=== PATIENT | male | born 1945 | race Caucasian/White ===

== ENCOUNTER 2021-10-19 14:01 | Emergency (ER) | payer MEDICARE ==
[2021-10-19] MEDS ORDERED: LORazepam 2 MG/ML SDV IVPUSH ONE (14:49)
[2021-10-19] MEDS ORDERED: Metoclopramide 10 MG/2 ML SDV IVPUSH ONE (14:49)
[2021-10-19] MEDS ORDERED: Sodium Chloride 0.9% 1,000 ML IV SCH (15:00)
[2021-10-19 16:12] LABS: HEMOGLOBIN A1C 6.2 %
[2021-10-19 16:20] LABS: ESTIMATED GFR 79 mL/min (>60)
[2021-10-19] MEDS ORDERED: Levothyroxine 75 MCG Tab PO ONE (17:54)
== END 2021-10-19 18:25 | disposition home or self-care (01) ==
LOC: JD.ED 14:01
DX: H81.10 Benign paroxysmal vertigo, unspecified ear (principal); E03.9 Hypothyroidism, unspecified; E11.9 Type 2 diabetes mellitus without complications; E78.00 Pure hypercholesterolemia, unspecified; I10 Essential (primary) hypertension; Z88.1 Allergy status to other antibiotic agents
CPT/HCPCS: 36415; 70450; 80053; 83036; 83735; 83880; 84443; 84484; 85025; 85610; 85730; 86140; 96361; 96374; 96375; 99284; A9270; J2060; J2765; J7030